=== PATIENT | male | born 1975 | race Caucasian/White ===

== ENCOUNTER 2020-12-24 14:01 | Inpatient (IN) | payer OTHER ==
[2020-12-24 15:46] VITALS: BMI 24.7
[2020-12-24] MEDS ORDERED: diazePAM 5 MG TABLET PO PRN (19:12)
[2020-12-24] MEDS ORDERED: MAGNESIUM HYDROX 2400MG/30ML ORAL SUSPENSION 30 ML CUP PO PRN (19:12)
[2020-12-24] MEDS ORDERED: MENTHOL/PHENOL 1 EACH UD MM PRN (19:12)
[2020-12-24] MEDS ORDERED: MAGNESIUM CITRATE 300 ML BOTTLE PO PRN (19:12)
[2020-12-24] MEDS ORDERED: ACETAMINOPHEN 325 MG TABLET (FP) PO PRN (19:12)
[2020-12-24] MEDS ORDERED: NICOTINE 14 MG/24 HOURS TOPICAL PATCH TD PRN (19:12)
[2020-12-24] MEDS ORDERED: BISMUTH SUBSALICYLATE 524 MG/30 ML PO PRN (19:12)
[2020-12-24] MEDS ORDERED: MAG HYDROX/AL HYDROX/SIMETH 30 ML UNIT-DOSE CUP PO PRN (19:12)
[2020-12-24] MEDS: hydrOXYzine PAMOATE 25 MG CAPSULE (FP) PO SCH (22:25)
[2020-12-24] MEDS: THIAMINE HCL 100 MG TABLET (FP) PO SCH (22:25)
[2020-12-24] MEDS: MELATONIN 5 MG TABLETS PO SCH (22:25)
[2020-12-25] MEDS: hydrOXYzine PAMOATE 25 MG CAPSULE (FP) PO SCH (06:25)
[2020-12-25] MEDS ORDERED: methaDONE HCL 10 MG TABLET PO SCH (08:30)
[2020-12-25] MEDS ORDERED: methaDONE HCL 10 MG TABLET PO ONE (08:37)
[2020-12-25] MEDS ORDERED: methaDONE 40 MG, methaDONE 10 MG PO ONE (09:30)
[2020-12-25] MEDS ORDERED: methaDONE HCL 40 MG DISPERSABLE TABLET ONE (09:48)
[2020-12-25] MEDS ORDERED: methaDONE HCL 10 MG TABLET ONE (09:48)
[2020-12-25 09:57] LABS: HEMATOCRIT 38.3 % (35.4-49); MCH 29.3 pg (25.7-33.7); MEAN PLT VOLUME 8.2 fl (7.5-11.1); PLATELET COUNT 329 10^3/uL (134-434); RBC 4.45 M/mm3 (4.00-5.60); RDW 13.6 % (11.9-15.9); WHITE BLOOD COUNT 3.8 K/mm3 (4.0-10.0)
[2020-12-25 10:09] LABS: ALBUMIN 2.9 g/dl (3.4-5.0)
[2020-12-25 10:10] LABS: CALCIUM 8.4 mg/dL (8.5-10.1)
[2020-12-25 10:11] LABS: BLOOD UREA NITROGEN 12.6 mg/dL (7-18)
[2020-12-25 10:14] LABS: CREATININE 0.9 mg/dL (0.55-1.3)
[2020-12-25 10:16] LABS: BILIRUBIN,TOTAL 0.2 mg/dL (0.2-1); TOT PROT 6.8 g/dl (6.4-8.2)
[2020-12-25] MEDS: diazePAM 5 MG TABLET PO SCH ×3 (11:41→22:17)
[2020-12-25] MEDS: THIAMINE HCL 100 MG TABLET (FP) PO SCH (22:17)
[2020-12-25] MEDS: MELATONIN 5 MG TABLETS PO SCH (22:17)
[2020-12-26] MEDS ORDERED: methaDONE HCL 10 MG TABLET ONE (04:17)
[2020-12-26] MEDS ORDERED: methaDONE HCL 40 MG DISPERSABLE TABLET ONE (04:18)
[2020-12-26] MEDS ORDERED: methaDONE HCL 40 MG DISPERSABLE TABLET PO SCH (06:00)
[2020-12-26] MEDS: diazePAM 5 MG TABLET PO SCH ×4 (06:36→22:21)
[2020-12-26] MEDS: methaDONE 40 MG, methaDONE 10 MG PO SCH (06:37)
[2020-12-26] MEDS: ACETAMINOPHEN 325 MG TABLET (FP) PO PRN (10:23)
[2020-12-26] MEDS: MELATONIN 5 MG TABLETS PO SCH (22:21)
[2020-12-26] MEDS: THIAMINE HCL 100 MG TABLET (FP) PO SCH (22:21)
[2020-12-27] MEDS ORDERED: methaDONE HCL 10 MG TABLET ONE (04:21)
[2020-12-27] MEDS ORDERED: methaDONE HCL 40 MG DISPERSABLE TABLET ONE (04:21)
[2020-12-27] MEDS: methaDONE 40 MG, methaDONE 10 MG PO SCH (05:17)
[2020-12-27] MEDS: diazePAM 5 MG TABLET PO SCH ×3 (05:18→22:10)
[2020-12-27] MEDS: diazePAM 5 MG TABLET PO PRN (07:56)
[2020-12-27] MEDS: METHOCARBAMOL 500 MG TABLET PO PRN (10:06)
[2020-12-27] MEDS: ACETAMINOPHEN 325 MG TABLET (FP) PO PRN (13:36)
[2020-12-27] MEDS: THIAMINE HCL 100 MG TABLET (FP) PO SCH (22:10)
[2020-12-27] MEDS: MELATONIN 5 MG TABLETS PO SCH (22:11)
[2020-12-27] MEDS: ONDANSETRON *ODT* 4 MG TABLET SL PRN (22:13)
[2020-12-28] MEDS ORDERED: methaDONE HCL 40 MG DISPERSABLE TABLET ONE (05:04)
[2020-12-28] MEDS ORDERED: methaDONE HCL 10 MG TABLET ONE (05:04)
[2020-12-28] MEDS: diazePAM 5 MG TABLET PO SCH ×2 (05:23→17:27)
[2020-12-28] MEDS: methaDONE 40 MG, methaDONE 10 MG PO SCH (05:23)
[2020-12-28] MEDS: ONDANSETRON *ODT* 4 MG TABLET SL PRN (06:43)
[2020-12-28] MEDS: hydrOXYzine PAMOATE 25 MG CAPSULE (FP) PO PRN (06:43)
[2020-12-28] MEDS: NICOTINE 10 MG CARTRIDGE (INHALER) IH PRN (06:51)
[2020-12-28] MEDS: ACETAMINOPHEN 325 MG TABLET (FP) PO PRN (09:42)
[2020-12-28] MEDS: diazePAM 5 MG TABLET PO PRN (09:43)
[2020-12-28] MEDS: THIAMINE HCL 100 MG TABLET (FP) PO SCH (23:02)
[2020-12-28] MEDS: MELATONIN 5 MG TABLETS PO SCH (23:02)
[2020-12-29] MEDS ORDERED: methaDONE HCL 10 MG TABLET ONE (05:16)
[2020-12-29] MEDS ORDERED: methaDONE HCL 40 MG DISPERSABLE TABLET ONE (05:17)
[2020-12-29] MEDS: methaDONE 40 MG, methaDONE 10 MG PO SCH (05:38)
[2020-12-29] MEDS: hydrOXYzine PAMOATE 25 MG CAPSULE (FP) PO PRN ×2 (05:41→15:02)
[2020-12-29] MEDS ORDERED: diazePAM 5 MG TABLET PO ONE (06:00)
[2020-12-29] MEDS: METHOCARBAMOL 500 MG TABLET PO PRN (07:52)
[2020-12-29] MEDS: NICOTINE 10 MG CARTRIDGE (INHALER) IH PRN (17:53)
[2020-12-29] MEDS: THIAMINE HCL 100 MG TABLET (FP) PO SCH (21:37)
[2020-12-29] MEDS: MELATONIN 5 MG TABLETS PO SCH (21:37)
[2020-12-30] MEDS ORDERED: methaDONE HCL 40 MG DISPERSABLE TABLET ONE (03:09)
[2020-12-30] MEDS ORDERED: methaDONE HCL 10 MG TABLET ONE (03:09)
[2020-12-30] MEDS: methaDONE 40 MG, methaDONE 10 MG PO SCH (06:15)
[2020-12-30] MEDS: IBUPROFEN 400 MG TABLET (FP) PO PRN (10:02)
[2020-12-30] MEDS: METHOCARBAMOL 500 MG TABLET PO PRN (10:02)
[2020-12-30] MEDS: ONDANSETRON *ODT* 4 MG TABLET SL PRN (11:57)
[2020-12-30] MEDS: hydrOXYzine PAMOATE 25 MG CAPSULE (FP) PO PRN (11:57)
[2020-12-30] MEDS: LIDOCAINE 5% TOPICAL PATCH TP SCH (14:52)
[2020-12-30] MEDS: MELATONIN 5 MG TABLETS PO SCH (21:22)
[2020-12-30] MEDS: LIDOCAINE PATCH REMOVAL MC SCH (21:22)
[2020-12-30] MEDS: THIAMINE HCL 100 MG TABLET (FP) PO SCH (21:22)
[2020-12-31] MEDS ORDERED: methaDONE HCL 10 MG TABLET ONE (03:10)
[2020-12-31] MEDS ORDERED: methaDONE HCL 40 MG DISPERSABLE TABLET ONE (03:10)
[2020-12-31] MEDS: methaDONE 40 MG, methaDONE 10 MG PO SCH (06:33)
[2020-12-31] MEDS: LIDOCAINE 5% TOPICAL PATCH TP SCH (10:15)
[2020-12-31] MEDS: IBUPROFEN 400 MG TABLET (FP) PO PRN (10:15)
[2020-12-31] MEDS: NICOTINE 10 MG CARTRIDGE (INHALER) IH PRN (10:33)
[2020-12-31] MEDS: hydrOXYzine PAMOATE 50 MG CAPSULE (FP) PO PRN (15:26)
[2020-12-31] MEDS: MELATONIN 5 MG TABLETS PO SCH (21:21)
[2020-12-31] MEDS: THIAMINE HCL 100 MG TABLET (FP) PO SCH (21:21)
[2020-12-31] MEDS: LIDOCAINE PATCH REMOVAL MC SCH (21:21)
[2020-12-31] MEDS: ACETAMINOPHEN 325 MG TABLET (FP) PO PRN (21:22)
[2020-12-31] MEDS ORDERED: HALOPERIDOL 5 MG TABLET PO SCH (22:00)
[2020-12-31] MEDS ORDERED: BENZTROPINE MESYLATE 1 MG TABLET PO PRN (22:00)
[2021-01-01] MEDS ORDERED: methaDONE HCL 40 MG DISPERSABLE TABLET ONE (03:05)
[2021-01-01] MEDS ORDERED: methaDONE HCL 10 MG TABLET ONE (03:05)
[2021-01-01] MEDS: methaDONE 40 MG, methaDONE 10 MG PO SCH (06:28)
[2021-01-01] MEDS: hydrOXYzine PAMOATE 50 MG CAPSULE (FP) PO PRN (10:00)
[2021-01-01] MEDS: HALOPERIDOL 5 MG TABLET PO SCH ×2 (10:45→21:35)
[2021-01-01] MEDS: LIDOCAINE 5% TOPICAL PATCH TP SCH (10:45)
[2021-01-01] MEDS: MELATONIN 5 MG TABLETS PO SCH (21:35)
[2021-01-01] MEDS: THIAMINE HCL 100 MG TABLET (FP) PO SCH (21:35)
[2021-01-01] MEDS: LIDOCAINE PATCH REMOVAL MC SCH (21:36)
[2021-01-02] MEDS ORDERED: methaDONE HCL 10 MG TABLET ONE (04:13)
[2021-01-02] MEDS ORDERED: methaDONE HCL 40 MG DISPERSABLE TABLET ONE (04:13)
[2021-01-02] MEDS ORDERED: methaDONE HCL 40 MG DISPERSABLE TABLET PO SCH (06:00)
[2021-01-02] MEDS: methaDONE 40 MG, methaDONE 10 MG PO SCH (06:04)
[2021-01-02] MEDS: LIDOCAINE 5% TOPICAL PATCH TP SCH (10:06)
[2021-01-02] MEDS: hydrOXYzine PAMOATE 50 MG CAPSULE (FP) PO PRN (10:06)
[2021-01-02] MEDS: HALOPERIDOL 5 MG TABLET PO SCH ×2 (10:07→21:20)
[2021-01-02] MEDS: NICOTINE 10 MG CARTRIDGE (INHALER) IH PRN (20:52)
[2021-01-02] MEDS: MELATONIN 5 MG TABLETS PO SCH (21:20)
[2021-01-02] MEDS: LIDOCAINE PATCH REMOVAL MC SCH (21:20)
[2021-01-02] MEDS: THIAMINE HCL 100 MG TABLET (FP) PO SCH (21:20)
[2021-01-03] MEDS ORDERED: methaDONE HCL 40 MG DISPERSABLE TABLET ONE (02:52)
[2021-01-03] MEDS ORDERED: methaDONE HCL 10 MG TABLET ONE (02:52)
[2021-01-03] MEDS: methaDONE 40 MG, methaDONE 10 MG PO SCH (06:16)
[2021-01-03] MEDS: LIDOCAINE 5% TOPICAL PATCH TP SCH (09:53)
[2021-01-03] MEDS: HALOPERIDOL 5 MG TABLET PO SCH ×2 (09:53→21:45)
[2021-01-03] MEDS: hydrOXYzine PAMOATE 50 MG CAPSULE (FP) PO PRN (09:55)
[2021-01-03] MEDS: MELATONIN 5 MG TABLETS PO SCH (21:45)
[2021-01-03] MEDS: THIAMINE HCL 100 MG TABLET (FP) PO SCH (21:45)
[2021-01-03] MEDS: LIDOCAINE PATCH REMOVAL MC SCH (21:46)
[2021-01-04] MEDS ORDERED: methaDONE HCL 40 MG DISPERSABLE TABLET ONE (03:14)
[2021-01-04] MEDS ORDERED: methaDONE HCL 10 MG TABLET ONE (03:14)
[2021-01-04] MEDS: methaDONE 40 MG, methaDONE 10 MG PO SCH (06:20)
[2021-01-04] MEDS: LIDOCAINE 5% TOPICAL PATCH TP SCH (10:09)
[2021-01-04] MEDS: hydrOXYzine PAMOATE 50 MG CAPSULE (FP) PO PRN (10:09)
[2021-01-04] MEDS: HALOPERIDOL 5 MG TABLET PO SCH ×2 (10:09→21:16)
[2021-01-04] MEDS ORDERED: HALOPERIDOL 5 MG TABLET PO ONE (12:53)
[2021-01-04] MEDS: THIAMINE HCL 100 MG TABLET (FP) PO SCH (21:16)
[2021-01-04] MEDS: MELATONIN 5 MG TABLETS PO SCH (21:16)
[2021-01-04] MEDS: LIDOCAINE PATCH REMOVAL MC SCH (21:17)
[2021-01-05] MEDS ORDERED: methaDONE HCL 10 MG TABLET ONE (03:17)
[2021-01-05] MEDS ORDERED: methaDONE HCL 40 MG DISPERSABLE TABLET ONE (03:17)
[2021-01-05] MEDS: methaDONE 40 MG, methaDONE 10 MG PO SCH (06:11)
[2021-01-05] MEDS: hydrOXYzine PAMOATE 50 MG CAPSULE (FP) PO PRN (09:50)
[2021-01-05] MEDS: PRENATAL VITAMINS W/ FOLIC ACID TABLET (FP) PO SCH (09:50)
[2021-01-05] MEDS: LIDOCAINE 5% TOPICAL PATCH TP SCH (09:50)
[2021-01-05] MEDS: HALOPERIDOL 5 MG TABLET PO SCH ×2 (10:20→21:25)
[2021-01-05] MEDS: NICOTINE 10 MG CARTRIDGE (INHALER) IH PRN (16:38)
[2021-01-05] MEDS: MELATONIN 5 MG TABLETS PO SCH (21:25)
[2021-01-05] MEDS: LIDOCAINE PATCH REMOVAL MC SCH (21:25)
[2021-01-05] MEDS: THIAMINE HCL 100 MG TABLET (FP) PO SCH (21:25)
[2021-01-06] MEDS ORDERED: methaDONE HCL 40 MG DISPERSABLE TABLET ONE (03:15)
[2021-01-06] MEDS ORDERED: methaDONE HCL 10 MG TABLET ONE (03:15)
[2021-01-06] MEDS: methaDONE 40 MG, methaDONE 10 MG PO SCH (06:28)
[2021-01-06] MEDS: HALOPERIDOL 5 MG TABLET PO SCH ×2 (10:27→21:16)
[2021-01-06] MEDS: PRENATAL VITAMINS W/ FOLIC ACID TABLET (FP) PO SCH (10:27)
[2021-01-06] MEDS: LIDOCAINE 5% TOPICAL PATCH TP SCH (10:28)
[2021-01-06] MEDS: THIAMINE HCL 100 MG TABLET (FP) PO SCH (21:15)
[2021-01-06] MEDS: MELATONIN 5 MG TABLETS PO SCH (21:15)
[2021-01-06] MEDS: LIDOCAINE PATCH REMOVAL MC SCH (21:16)
[2021-01-07] MEDS ORDERED: methaDONE HCL 40 MG DISPERSABLE TABLET ONE (03:03)
[2021-01-07] MEDS ORDERED: methaDONE HCL 10 MG TABLET ONE (03:03)
[2021-01-07] MEDS: methaDONE 40 MG, methaDONE 10 MG PO SCH (06:13)
[2021-01-07] MEDS: PRENATAL VITAMINS W/ FOLIC ACID TABLET (FP) PO SCH (09:45)
[2021-01-07] MEDS: HALOPERIDOL 5 MG TABLET PO SCH ×2 (09:45→21:38)
[2021-01-07] MEDS: LIDOCAINE 5% TOPICAL PATCH TP SCH (09:45)
[2021-01-07] MEDS: NICOTINE 10 MG CARTRIDGE (INHALER) IH PRN (18:23)
[2021-01-07] MEDS: THIAMINE HCL 100 MG TABLET (FP) PO SCH (21:38)
[2021-01-07] MEDS: MELATONIN 5 MG TABLETS PO SCH (21:38)
[2021-01-07] MEDS: LIDOCAINE PATCH REMOVAL MC SCH (21:39)
[2021-01-08] MEDS ORDERED: methaDONE HCL 40 MG DISPERSABLE TABLET ONE (02:59)
[2021-01-08] MEDS ORDERED: methaDONE HCL 10 MG TABLET ONE (02:59)
[2021-01-08] MEDS: methaDONE 40 MG, methaDONE 10 MG PO SCH (06:25)
[2021-01-08] MEDS: PRENATAL VITAMINS W/ FOLIC ACID TABLET (FP) PO SCH (10:00)
[2021-01-08] MEDS: LIDOCAINE 5% TOPICAL PATCH TP SCH (10:01)
[2021-01-08] MEDS: HALOPERIDOL 5 MG TABLET PO SCH ×2 (10:01→21:16)
[2021-01-08] MEDS: NICOTINE 10 MG CARTRIDGE (INHALER) IH PRN ×2 (10:05→16:32)
[2021-01-08] MEDS: LIDOCAINE PATCH REMOVAL MC SCH (21:17)
[2021-01-08] MEDS: MELATONIN 5 MG TABLETS PO SCH (21:17)
[2021-01-08] MEDS: IBUPROFEN 400 MG TABLET (FP) PO PRN (21:17)
[2021-01-08] MEDS: THIAMINE HCL 100 MG TABLET (FP) PO SCH (21:17)
[2021-01-09] MEDS ORDERED: methaDONE HCL 40 MG DISPERSABLE TABLET ONE (03:07)
[2021-01-09] MEDS ORDERED: methaDONE HCL 10 MG TABLET ONE (03:07)
[2021-01-09] MEDS: methaDONE 40 MG, methaDONE 10 MG PO SCH (06:13)
[2021-01-09] MEDS: NICOTINE 10 MG CARTRIDGE (INHALER) IH PRN ×2 (06:42→15:50)
[2021-01-09] MEDS: HALOPERIDOL 5 MG TABLET PO SCH (10:09)
[2021-01-09] MEDS: PRENATAL VITAMINS W/ FOLIC ACID TABLET (FP) PO SCH (10:09)
[2021-01-09] MEDS: LIDOCAINE 5% TOPICAL PATCH TP SCH (10:09)
[2021-01-09 16:48] VITALS: BP 124/75; PULSE 68; TEMP 97.3
== END 2021-01-09 17:20 | disposition home or self-care (01) | DRG 895 ==
LOC: YASAS 14:01 → UNDOADMIN 17:26 → Y3N 17:26 → Y3W 12-29 14:13
PROVIDERS: ADMIT Allergy & Immunology; ATTEND Allergy & Immunology
PROC: HZ2ZZZZ Detoxification Services for Substance Abuse Treatment (ICD-10-PCS; principal; 2020-12-24)
PROC: HZ42ZZZ Group Counseling for Substance Abuse Treatment, Cognitive-Behavioral (ICD-10-PCS; 2020-12-29)
DX: F10.230 Alcohol dependence with withdrawal, uncomplicated (principal); F11.20 Opioid dependence, uncomplicated; F14.20 Cocaine dependence, uncomplicated; F12.20 Cannabis dependence, uncomplicated; F17.210 Nicotine dependence, cigarettes, uncomplicated; F19.24 Other psychoactive substance dependence with psychoactive substance-induced mood disorder; F20.9 Schizophrenia, unspecified; Z56.0 Unemployment, unspecified
CPT/HCPCS: 36415; 80053; 85027; 86780; C9803; Q0162; U0003; U0005